=== PATIENT | female | born 1990 | race Caucasian/White ===

== ENCOUNTER 2017-08-03 05:00 | Day surgery (SDC) | payer MEDICAID ==
[2017-08-02 11:31] LABS: BASOPHILS 0.1 % (0-2); EOSINOPHILS 0.4 % (0-7); HEMATOCRIT 43.6 % (36.0-48.0); HEMOGLOBIN 14.9 g/dL (12-16); IMMATURE GRANULOCYTES 0.1 % (0-5); LYMPHOCYTES 29.8 % (15-50); MCH 30.7 pg (26.0-34.0); MCHC 34.2 g/dL (31.0-37.0); MCV 89.9 fL (80.0-100.0); MEAN PLATELET VOLUME 11.2 fL (7.4-10.4); MONOCYTES 6.6 % (2-11); PLATELET COUNT 149 10x3/uL (130-400); RBC 4.85 10x6/uL (4.00-5.40); RDW 12.7 % (11.5-14.5); WBC 7.9 10x3/uL (4.8-10.8)
[2017-08-02 11:40] LABS: CALC OSMOLALITY 277 mosm/kg (275-300); CALCIUM 8.6 mg/dL (8.5-10.1); CARBON DIOXIDE 26.6 mmol/L (21.0-32.0); CHLORIDE - SERUM 104 mmol/L (98-107); CREATININE - SERUM 0.8 mg/dL (0.6-1.3); GLUCOSE 91 mg/dL (74-106); POTASSIUM - SERUM 3.5 mmol/L (3.5-5.1); SODIUM 140 mmol/L (136-145); UREA NITROGEN 11 mg/dL (7-18); eGFR NON AFRICAN AMERICAN > 90 mL/min (90-120)
[~2017-08-03 05:00] MED LIST: ASPIRIN EC81 M1 PO; CELEXA20 MG PO; KLONOPIN1 MG PO
[2017-08-03 06:15] VITALS: BP 90/40; BMI 21.8
[2017-08-03 06:54] LABS: HCG URINE NEGATIVE (NEGATIVE)
--- NOTE | 2017-08-03 09:24 | HP ---
PATIENT: PALOMA HOOPER MEDICAL RECORD: [id number] ACCOUNT: [id number] LOCATION:[facility] : 90 ADMISSION DATE: 08/03/17 HISTORY AND PHYSICAL EXAMINATION HISTORY OF PRESENT ILLNESS: This patient is a 27-year-old white female with severe cervical dysplasia and undesired fertility. She is scheduled for a LEEP procedure in the a.m. and a laparoscopic bilateral tubal sterilization procedure. MEDICAL PROBLEMS: Include anxiety disorder, carcinoma in situ as described above and undesired fertility. She also has a clotting disorder and takes aspirin daily FAMILY HISTORY: Noncontributory. Other problems include panic attacks, impulse control disorder, bipolar 2 disorder and a sleep terror disorder. MEDICATIONS: Include citalopram and clonazepam. HABITS: Smoker. OBSTETRIC HISTORY: Two full term pregnancies, 2 children. FAMILY HISTORY: Includes heart disease, hypertension, diabetes and cancer. SOCIAL HISTORY: Smoker. Other history is none. PHYSICAL EXAMINATION: GENERAL: A well-developed and well-nourished white female, in no distress. HEENT: Grossly unremarkable. LUNGS: Clear. HEART: Regular rate and rhythm. ABDOMEN: Soft and nontender. PELVIC: Has been done and is current. EXTREMITIES: No cyanosis, clubbing, or edema. NEUROLOGIC: Grossly intact. IMPRESSION: 1. Carcinoma in situ of the cervix with need for further evaluation with a LEEP specimen. 2. Undesired fertility, requests tubal sterilization. PLAN: A LEEP procedure with endocervical curettage and a laparoscopic bilateral tubal sterilization procedure. I have discussed with patient and her partner potential risks of surgery as well as indications and alternatives and had answered all of their questions. Further discussed potential risks of surgery, anesthesia complications, infection, bleeding, injury to other organs, possibly necessitating a second surgery. TRANSINT:[id number] Voice Confirmation ID: [id number] DOCUMENT ID: [id number] HISTORY AND PHYSICAL [id number] PALOMA HOOPER BRENDA MD at 0924 CC: [id number] DICTATION DATE: 08/02/17 1618 RN MANAGER: 08/02/17 1650 [id number] [place] [address]
== END 2017-08-03 12:25 | disposition home or self-care (01) ==
LOC: D.OPS 05:00 → D.PAN 07:30 → D.OPS 07:30 → D.PAN 10:15 → D.OPS 10:15
PROVIDERS: Obstetrics & Gynecology
DX: Z30.2 Encounter for sterilization (principal); R87.612 Low grade squamous intraepithelial lesion on cytologic smear of cervix (LGSIL); Z01.812 Encounter for preprocedural laboratory examination

== ENCOUNTER 2017-08-04 15:21 | Emergency (ER) | payer BC ==
[2017-08-04 16:21] LABS: APPEARANCE HAZY (CLEAR); BILIRUBIN NEGATIVE (NEGATIVE); COLOR AMBER (YELLOW); GLUCOSE NEGATIVE (NEGATIVE); KETONE NEGATIVE (NEGATIVE); NITRITE NEGATIVE (NEGATIVE); PROTEIN TRACE mg/dL (NEGATIVE); SPECIFIC GRAVITY 1.005 (1.005-1.020); UROBILINOGEN NORMAL (NORMAL)
[2017-08-04 16:22] LABS: RED CELLS - URINE 0-5 /hpf (0-5); WHITE CELLS - URINE 0-5 /hpf (0-5)
[2017-08-04 16:23] LABS: BACTERIA FEW /hpf (NONE SEEN)
[2017-08-04 16:27] LABS: YEAST OCC /hpf (NONE SEEN)
[2017-08-04 16:37] LABS: BASOPHILS 0.1 % (0-2); EOSINOPHILS 0.4 % (0-7); HEMATOCRIT 40.8 % (36.0-48.0); IMMATURE GRANULOCYTES 0.3 % (0-5); LYMPHOCYTES 39.6 % (15-50); MCHC 34.3 g/dL (31.0-37.0); MCV 90.3 fL (80.0-100.0); MEAN PLATELET VOLUME 12.9 fL (7.4-10.4); NEUTROPHILS 54.6 % (40-80); PLATELET COUNT 174 10x3/uL (130-400); RBC 4.52 10x6/uL (4.00-5.40); RDW 12.8 % (11.5-14.5); WBC 9.9 10x3/uL (4.8-10.8)
[2017-08-04 16:56] LABS: ALBUMIN 3.9 g/dL (3.4-5.0); ALKALINE PHOSPHATASE 85 U/L (46-116); ALT (SGPT) 27 U/L (10-68); AMYLASE - SERUM 37 U/L (25-115); BILIRUBIN - TOTAL 0.78 mg/dL (0.2-1.3); CALC OSMOLALITY 272 mosm/kg (275-300); CALCIUM 8.6 mg/dL (8.5-10.1); CARBON DIOXIDE 27.3 mmol/L (21.0-32.0); CHLORIDE - SERUM 104 mmol/L (98-107); CREATININE - SERUM 0.8 mg/dL (0.6-1.3); GLUCOSE 80 mg/dL (74-106); LIPASE 82 U/L (73-393); POTASSIUM - SERUM 3.6 mmol/L (3.5-5.1); PROTEIN - SERUM 6.7 g/dL (6.4-8.2); SODIUM 138 mmol/L (136-145); UREA NITROGEN 8 mg/dL (7-18); eGFR NON AFRICAN AMERICAN > 90 mL/min (90-120)
== END 2017-08-04 20:25 | disposition home or self-care (01) ==
LOC: D.ER 15:21
PROVIDERS: Emergency Medicine
DX: R10.9 Unspecified abdominal pain (principal); K66.8 Other specified disorders of peritoneum